=== PATIENT | female | born 1995 | race Two or more races ===

== ENCOUNTER 2017-01-23 16:23 | Emergency (ER) | payer BC ==
[~2017-01-23] VITALS: Ht 167.6 cm; Wt 59.0 kg
--- NOTE | 2017-01-23 17:16 | NUR ---
Patient is resting comfortably in bed while using her personal electronic device, pending test results and CT scans at this time.
[2017-01-23 17:27] LABS: *URINE HCG, QUAL NEGATIVE (NEGATIVE)
--- NOTE | 2017-01-23 18:21 | NUR ---
Patient discharged to home in stable conditon. Written and verbal after care instructions given to patient and boyfriend. Patient and boyfriend verbalized understanding of instructions. Patient left ER with brisk steady gait.
== END 2017-01-23 18:25 | disposition home or self-care (01) ==
LOC: ER 16:27
DX: S02.2XXA Fracture of nasal bones, initial encounter for closed fracture (principal); F07.81 Postconcussional syndrome; F41.9 Anxiety disorder, unspecified; W22.8XXA Striking against or struck by other objects, initial encounter; Y93.89 Activity, other specified; Y92.9 Unspecified place or not applicable; Y99.9 Unspecified external cause status
CPT/HCPCS: 70450; 72125; 84703; 99285; A4663